=== PATIENT | male | born 1975 | race Caucasian/White ===

== ENCOUNTER 2025-01-15 10:04 | Outpatient (REF) | payer OTHER, SELFPAY ==
--- OUTSIDE RECORDS SUMMARY | 2025-01-15 09:30 | XMS_ITS | Encounter Summary ---
Author Organization [employer] Address [address] [place] [address] Care Team Providers Care Window Machine Operator Name Role Phone Crys Gurrola MD Primary Care Provide r Encounter Details Date Type Department Care Team (Late st Contact Info) Description 01/15/2025 9:30 AM EDT Office Visit [facility] [address] [place], [place] [phone] Crys Gurrola MD [address] [place], [place] [phone] Screening for colon cancer (Primary Dx); Class 1 obesity due to excess calories without serious comorbidity with body mass index (BMI) of 33.0 to 33.9 in adult; Left otitis media, unspecified otitis media type; Encounter for immunization Social History Tobacco Use Types Packs/Day Years Used Date Smoking Tobacco: Never Tobacco Cessation:Counseling Given: Not Answered Depression Answer Date Recorded Patient Health Questionnaire-9 Score 4 01/15/2025 Patient Health Questionnaire-9 Score 4 01/15/2025 Last PHQ-9: Questionnaire Data Not on file 0 01/15/2025 Housing Stability Answer Date Recorded What is your housing situation today? I have missy martinez 01/06/[address] you li ve. Do you have problems with any of the following? None of the above 01/06/2025 Food Insecurity Answer Date Recorded Within the past 12 months, y ou worried that your food would run out before you got money to buy more: Never True 01/06/2025 Within the past 12 months,th e food you bought just didn't last and you didn't have enough money to get more: Never True 11/2024 Transportation Answer Date Recorded In the past 12 months, has l ack of transportation kept you from medical appts, meetings, work or from getting things needed for daily living? No 01/06/2025 Utilities Answer Date Recorded In the past 12 months, has t he electric, gas, oil or water company threatened to shut off services in your home? No 01/06/2025 Depression Answer Date Recorded Patient Health Questionnaire-2 Score 0 01/15/2025 Internet Access Answer Date Recorded Internet Access Q1 Yes 01/06/2025 Internet Access Q2 Not on file 01/06/2025 Sex and Gender Information Value Date Recorded Sex Assigned at Male 02/28/2022 10:16 AM EDT Legal Sex Male 10:16 AM EDT Gender Identity Choose not to disclose 9:40 AM EDT Sexual Orientation Don't know 01/14/2025 9: 40 AM EDT documented as of this encounter Last Filed Vital Signs Vital Sign Reading Time Taken Comments Blood Pressure 128/82 01/15/2025 9:16 AM EDT Pulse 72 01/15/2025 9:16 AM EDT Temperature 36.2 C (97.2 F) 01/15/2025 9:16 AM EDT Respiratory Rate 20 01/15/2025 9:16 AM EDT Oxygen Saturation 97% 01/15/2025 9:16 AM EDT Inhaled Oxygen Concentration - - Weight 102 kg (225 lb 3.2 oz) 01/15/2025 9:16 AM EDT Height 175.3 cm (5' 9 ) 01/15/2025 9:16 AM EDT Body Mass Index 33.26 01/15/2025 9:16 AM EDT documented in this encounter Functional Status * Over the past 2 weeks, how often have you been bothered by any of the following problems? Question Answer Date of Assessment Author Patient Health Questionnaire-2 Score 0 12/30 9:54 AM EDT Krystal Bean MA * Little interest or pleasure in doing things Answer Date of Assessment Author Not at all 01/15/2025 9:54 AM EDT Tai Bean ra, [place] * Feeling down, depressed, or hopeless Answer Date of Assessment Author Not at all 01/15/2025 9:54 AM EDT Tai Bean ra, [place] * Trouble falling or staying asleep, or sleeping too much Answer Date of Assessment Author Several days 01/15/2025 9:54 AM Tai Hernandez ra, [place] * Feeling tired or having little energy Answer Date of Assessment Author Several days 01/15/2025 9:54 AM Tai Hernandez ra, [place] * Poor appetite or overeating Answer Date of Assessment Author More than half the days 01/15/2025 9:54 AM Krystal Bowens [place] * Feeling bad about yourself - or that you are a failure or have let yourself or your family down Answer Date of Assessment Author Not at all 01/15/2025 9:54 AM Tai Hernandez ra, [place] * Trouble concentrating on things, such as reading the newspaper or watching television Answer Date of Assessment Author Not at all 01/15/2025 9:54 AM Tai Hernandez ra, [place] * Moving or speaking so slowly that other people could have noticed? Or the opposite - being so fidgety or restless that you have been moving around a lot more than usual. Answer Date of Assessment Author Not at all 01/15/2025 9:54 AM Tai Hernandez ra, [place] * Thoughts that you would be better off or hurting yourself in some way Answer Date of Assessment Author Not at all 01/15/2025 9:54 AM Tai Hernandez ra, [place] * Patient Health Questionnaire-9 Score Answer Date of Assessment Author 4 01/15/2025 9:54 AM Tai Hernandez ra, [place] * How difficult have these problems made it for you to do your work, take care of things at home, or get along with other people? Answer Date of Assessment Author Not difficult at all 01/15/2025 9:54 AM Krystal Padilla MA * Over the last 2 weeks, how often have you been bothered by any of the following problems? Question Answer Date of Assessment Author Feeling nervous, anxious, or on edge 0 12/30 9:54 AM Krystal Hernandez MA Not being able to stop or co ntrol worrying 0 01/15/2025 9:54 AM Krystal Hernandez MA Worrying too much about diff erent things 0 01/15/2025 9:54 AM Krystal Hernandez MA Trouble relaxing 0 01/15/2025 9:54 AM EDT Krystal Gutierrez MA Being so restless that it is hard to sit still 0 01/15/2025 9:54 AM EDT Krystal Bean MA Becoming easily annoyed or irritable 1 12/30 9:54 AM EDT Krystal Bean MA Feeling afraid as if somethi ng awful might happen 0 01/15/2025 9:54 AM EDT Krystal Bean MA FEDERICO-7 Total Score 1 01/15/2025 9:54 AM EDT Krystal Bean MA documented as of this encounter Progress Notes * Crys Natarajan MD - 01/15/2025 9:30 AM EDT SUBJECTIVE: Karl Lamb is a 49 y.o. year old adult who presents for New patient . Occupation:supervisor customer services [employer] Lives with: - EtOH denies - smoking cigarettes denies - recreational drug use denies Diet:regular Exercise:sedentary Surgeries/Hospitalizations:cholecystectomy Colonoscopy: cologuard ordered PMHx:none FMHx:father HTN, mother stomach cancer 74 y/o, brother HTN and DM type 2 Immunizations: Reviewed Tdap today Acute Concerns: Muscular pain after exercise he tells me this happened after he got COVID in 2019 Left ear pain this has been happening on and off for the past few months denies discharge, he reports fullness Social History Social History Narrative Not on file Problem List[1] Family History[2] Review of Systems Constitutional: Negative. HENT: Negative. Eyes: Positive for pain. Negative for photophobia, discharge, redness, itching and visual disturbance. Respiratory: Negative. Cardiovascular: Negative. Musculoskeletal: Positive for myalgias. OBJECTIVE: Vitals: 01/15/25 0916 BP: 128/82 BP Location: Left arm Patient Position: Sitting BP Cuff Size: Adult Pulse: 72 Resp: 20 Temp: 97.2 ??F (36.2 ??C) TempSrc: Oral SpO2: 97% Weight: 225 lb 3.2 oz (102 kg) Height: 5' 9 (1.753 m) Physical Exam Constitutional: Appearance: Normal appearance. HENT: Left Ear: Tympanic membrane is injected and erythematous. Cardiovascular: Rate and Rhythm: Normal rate and regular rhythm. Pulmonary: Effort: Pulmonary effort is normal. Breath sounds: Normal breath sounds. Abdominal: General: Abdomen is flat. Palpations: Abdomen is soft. Musculoskeletal: Right lower leg: No edema. Left lower leg: No edema. Neurological: Mental Status: Karl is alert. Follow Up: Follow up for 4-6 weeks review of labs televisit . Medications Ordered Prior to Encounter[3] Problem List Items Addressed This Visit Class 1 obesity due to excess calories without serious comorbidity with body mass index (BMI) of 33.0 to 33.9 in adult Relevant Orders CBC auto differential Comprehensive Metabolic Panel Hemoglobin A1c HIV-1/2 Antigen and Antibodies, Fourth Generation, with Reflexes Hepatitis C Antibody with Reflex to HCV, RNA, Quantitative, Real-Time PCR Lipid Panel, Standard Vitamin D, 25-Hydroxy, Total, Immunoassay TSH with Reflex to Free T4 Left otitis media Relevant Medications amoxicillin-clavulanate (Augmentin) 875-125 MG tablet Other Visit Diagnoses Screening for colon cancer - Primary Relevant Medications amoxicillin-clavulanate (Augmentin) 875-125 MG tablet Other Relevant Orders Cologuard?? colon cancer screening Encounter for immunization Relevant Medications amoxicillin-clavulanate (Augmentin) 875-125 MG tablet Other Relevant Orders TDAP VACCINE 7 yrs + (Completed) [1] Patient Active Problem List Diagnosis Class 1 obesity due to excess calories without serious comorbidity with body mass index (BMI) of 33.0 to 33.9 in adult Left otitis media [2] No family history on file. [3] No current outpatient medications on file prior to visit. No current facility-administered medications on file prior to visit. documented in this encounter Plan of Treatment Scheduled Orders Name Type Priority Associated Diagnoses Orde r Schedule Cologuard colon cancer screening Lab Routine Screening for colon cancer Ordered: 01/15/2025 HIV-1/2 Antigen and Antibodies, Fourth Generation, with Reflexes Lab Routine Class 1 obesity due to excess calories without serious comorbidity with body mass index (BMI) of 33.0 to 33.9 in adult Expected: 01/15/2025 (Approximate), Expires: 01/15/2026 Hepatitis C Antibody with Reflex to HCV, RNA, Quantitative, Real-Time PCR Lab Routine Class 1 obesity due to excess calories without serious comorbidity with body mass index (BMI) of 33.0 to 33.9 in adult Expected: 01/15/2025, Expires: 01/15/2026 documented as of this encounter Procedures Procedure Name Priority Date/Time Associated Diagnosis Comments VITAMIN D,25-OH,TOTAL,IA Routine 01/15/2025 10:17 AM EDT Class 1 obesity due to excess calories without serious comorbidity with body mass index (BMI) of 33.0 to 33.9 in adult TSH W/REFLEX TO FT4 Routine 01/15/2025 1 0:17 AM EDT Class 1 obesity due to excess calories without serious comorbidity with body mass index (BMI) of 33.0 to 33.9 in adult CBC WITH AUTO DIFFERENTIAL Routine 01/15/2025 10:17 AM EDT Class 1 obesity due to excess calories without serious comorbidity with body mass index (BMI) of 33.0 to 33.9 in adult HEMOGLOBIN A1C Routine 01/15/2025 10:17 AM EDT Class 1 obesity due to excess calories without serious comorbidity with body mass index (BMI) of 33.0 to 33.9 in adult LIPID PANEL, STANDARD Routine 01/15/2025 10:17 AM EDT Class 1 obesity due to excess calories without serious comorbidity with body mass index (BMI) of 33.0 to 33.9 in adult COMPREHENSIVE METABOLIC PANEL Routine 01/15/2025 10:17 AM EDT Class 1 obesity due to excess calories without serious comorbidity with body mass index (BMI) of 33.0 to 33.9 in adult documented in this encounter Results * TSH with Reflex to Free T4 (01/15/2025 10:17 AM EDT) TSH reflex Free T4 1.94 0.32 - 4.0 uIU/mL [facility] Blood Venous blood specimen / Unknown 01/15/2025 10:17 AM EDT 01/15/2025 11:20 AM EDT us Crys Natarajan MD LAB BLOOD ORDERABLES Final Result [facility] [address] [place] [phone] * (ABNORMAL) Vitamin D, 25-Hydroxy, Total, Immunoassay (01/15/2025 10:17 AM EDT) Vitamin D 25-OH Total 21.3(L) >30 ng/mL [facility] Comment: Health Based Reference Values*< 20 ng/mL Aukuxlcqh29-58 ng/mL Insufficient> 30 ng/mL Sufficient*Barbara GILLIS. N Engl J Med. 2007;357:266-280There is no well-established upper level of normal vitamin Dlevels. Some laboratories use 50 ng/mL as an upper limit ofnormal. However, toxicity is patient-dependent and may occurat any level. Careful correlation with the patient'spresentation is necessary and, if there is concern forvitamin D toxicity, treatment should be consideredirrespective of the serum level.Care must be taken in interpreting Vitamin D results fromdifferent laboratories and methodologies. Published datademonstrated that results from patients undergoinghemodialysis may show a negative bias when tested withvarious automated 25-OH vitamin D assays when compared toLC-MS/MS.When testing samples from patients whose predominant form ofVitamin D is Vitamin D2, such as patients receiving VitaminD2 supplementation, results that are subtherapeutic shouldbe confirmed with another method such as LC-MS/MS. Blood Venous blood specimen / Unknown 01/15/2025 10:17 AM EDT 01/15/2025 11:20 AM EDT us Crys Natarajan MD LAB BLOOD ORDERABLES Final Result [facility] [address] [place] [phone] * (ABNORMAL) Lipid Panel, Standard (01/15/2025 10:17 AM EDT) Triglycerides 189(H) <150 mg/dL [facility] Comment:Desirable Triglyceri de: less than 150 mg/dLBorderline High Triglyceride 150-199 mg/dLHigh Triglyceride: 200-499 mg/dLVery High Triglyceride: greater than or equal to 5OO mg/dL Cholesterol 183 <200 mg/dL [facility] Comment:Desirable Cholestero l: less than 200 mg/dLBorderline High Cholesterol: 200-239 mg/dLHigh Cholesterol: greater than 239 mg/dL LDL Cholesterol Calculated 117(H) <100 mg/dL [facility] Comment:Desirable LDL: less than 100 mg/dLNear Optimal/Above Optimal LDL: 110- 129 mg/dLBorderline High LDL: 130-159 mg/dLHigh LDL: 160-189 mg/dLVery High LDL: greater than or equal to 190 mg/dL HDL Cholesterol 29(L) >40 mg/dL [facility] Comment:Desirable HDL: great er than 40 mg/dL Note: This HDL assay may give artificially low results in patients with liver disease. Blood Venous blood specimen / Unknown 01/15/2025 10:17 AM EDT 01/15/2025 11:20 AM EDT Crys Natarajan MD LAB BLOOD ORDERABLES Final Result [facility] [address] [place] [phone] * (ABNORMAL) Hemoglobin A1c (01/15/2025 10:17 AM EDT) Hemoglobin A1c 7.4(H) <6.0 % [facility] Comment:Hemoglobin A1C Refer ence Range Adults: 4.8 - 6.0 % Non diabetic: < 6.0 % Goal: < 7.0 %Additional Action Suggested: > 8.0 %Note: Hemoglobin A1c results are invalid for patients with abnormal amounts of HbF. Blood transfusions may impact the HbA1c concentration in the patient sample. Estimated Average Glucose 166 mg/dL [facility] Comment:eAG = Estimated ave rage glucose which is %A1C expressed asaverage glucose, using the formula of the Q0N-[id number] Glucose study (ADAG), Diabetes Care, Vol.31,#8,Nov. 2007 Blood Venous blood specimen / Unknown 01/15/2025 10:17 AM EDT 01/15/2025 11:14 AM EDT us Crys Natarajan MD LAB BLOOD ORDERABLES Final Result [facility] [address] [place] [phone] * (ABNORMAL) Comprehensive Metabolic Panel (01/15/2025 10:17 AM EDT) Sodium 139 135 - 145 mmol/L [facility] Potassium 4.9 3.3 - 5.1 mmol/L [facility] Chloride 105 96 - 108 mmol/L [facility] Carbon Dioxide 30(H) 22 - 29 mmol/L [facility] Anion Gap 9(L) 12 - 20 [facility] Urea Nitrogen (BUN) 12 9 - 16 mg/dL [facility] Creatinine, Serum 0.92 0.5 - 1.4 mg/dL [facility] Estimated Glomerular Filt Rate >60 [facility] Comment:Chronic Kidney Disea se: Estimated GFR < 60 mL/min/[id number] Kidney Disease: Estimated GFR < 15 mL/min/1.73m2 Glucose 130(H) 60 - 115 mg/dL [facility] Calcium 9.0 8.4 - 10.2 mg/dL [facility] Bilirubin, Total 0.4 0.0 - 1.0 mg/dL [facility] Aspartate Amino Transferase 55(H) 5 - 37 U/L [facility] Alanine Aminotransferase 88(H) 0 - 40 U/L [facility] Total Protein 7.8 6.5 - 8.0 g/dL [facility] Albumin Level 4.5 3.5 - 5.0 g/dL [facility] Alkaline Phosphatase 80 39 - 117 U/L [facility] Blood Venous blood specimen / Unknown 01/15/2025 10:17 AM EDT 01/15/2025 11:20 AM EDT Crys Natarajan MD LAB BLOOD ORDERABLES Final Result [facility] [address] [place] [phone] * (ABNORMAL) CBC auto differential (01/15/2025 10:17 AM EDT) White Blood Count 8.4 4.8 - 10.8 X10*3/uL [facility] Red Blood Count 4.96 4.60 - 5.80 X10*6/uL [facility] Hemoglobin 13.3(L) 14.0 - 18.0 g/dl [facility] Hematocrit 42.3 42.0 - 52.0 % [facility] Mean Corpuscular Volume 85.3 80.0 - 98.0 fL [facility] Mean Corpuscular Hemoglobin 26.8(L) 27.0 - 33.0 pg [facility] Mean Corpuscular HGB Conc 31.4 31.0 - 36.0 g/dl [facility] Red Cell Distribution Width 12.1 11.0 - 16.0 % [facility] Platelet Count 255 160 - 400 X10*3/uL [facility] Mean Platelet Volume 10.4 9.4 - 12.4 fL [facility] Neutrophils Percent Auto 56.3 45 - 73 % [facility] Imm Gran Pct Auto 0.2 0.0 - 0.4 % [facility] Lymphocytes Percent Auto 30.9 20 - 40 % [facility] Monocytes Percent Auto 7.8 2 - 11 % [facility] Eosinophils Percent Auto 4.2(H) 0 - 4 % [facility] Basophils Percent Auto 0.6 0 - 2 % [facility] NRBC Pct Auto 0.0 0.0 - 0.2 /100WBC [facility] Neutrophils Absolute Auto 4.7 2.0 - 8.3 x10*3/uL [facility] Imm Gran Abs Auto 0.02 0.00 - 0.03 X10*3/uL [facility] Lymphocytes Absolute Auto 2.6 1.2 - 4.9 X10*3/uL [facility] Monocytes Absolute Auto 0.7 0.1 - 1.2 X10*3/uL [facility] Eosinophils Absolute Auto 0.4 0.0 - 0.4 X10*3/uL [facility] Basophils Absolute Auto 0.1 0.0 - 0.2 X10*3/uL [facility] NRBC Abs Auto 0.000 0.0 - 0.012 X10*3/uL [facility] Blood Venous blood specimen / Unknown 01/15/2025 10:17 AM EDT 01/15/2025 11:14 AM EDT us Crys Natarajan MD LAB BLOOD ORDERABLES Final Result [facility] [address] [place] [phone] documented in this encounter Visit Diagnoses Diagnosis Screening for colon cancer- Primary Special screening for malignant neoplasms, colon Class 1 obesity due to excess calories without serious comorbidity with body mass index (BMI) of 33.0 to 33.9 in adult Left otitis media, unspecified otitis media type Encounter for immunization documented in this encounter Additional Health Concerns Assessment Noted Time PHQ-9 Depression Total Score: 4 01/16/20 9:54 AM EDT documented as of this encounter Care Teams Window Machine Operator Relationship Specialty Start Date End Date Crys Gurrola MD [address] [place] [phone] PCP - General Internal Medicine 01/15/25 documented as of this encounter
[2025-01-15 11:21] LABS: MANUAL DIFF FLAG NO
[2025-01-15 11:32] LABS: Hematocrit 42.3 % (42.0-52.0); Hemoglobin 13.3 g/dl (14.0-18.0); Imm Gran Abs Auto 0.02 X10*3/uL (0.00-0.03); Imm Gran Pct Auto 0.2 % (0.0-0.4); Lymphocytes Absolute Auto 2.6 X10*3/uL (1.2-4.9); Mean Corpuscular HGB Conc 31.4 g/dl (31.0-36.0); Mean Corpuscular Hemoglobin 26.8 pg (27.0-33.0); Mean Corpuscular Volume 85.3 fL (80.0-98.0); NRBC Abs Auto 0.000 X10*3/uL (0.0-0.012); NRBC Pct Auto 0.0 /100WBC (0.0-0.2); Platelet Count 255 X10*3/uL (160-400); Red Blood Count 4.96 X10*6/uL (4.60-5.80); White Blood Count 8.4 X10*3/uL (4.8-10.8)
[2025-01-15 11:49] LABS: Alanine Aminotransferase 88 U/L (0-40); Albumin Level 4.5 g/dL (3.5-5.0); Alkaline Phosphatase 80 U/L (39-117); Anion Gap 9 (12-20); Aspartate Amino Transferase 55 U/L (5-37); Blood Urea Nitrogen 12 mg/dL (9-16); Calcium 9.0 mg/dL (8.4-10.2); Carbon Dioxide 30 mmol/L (22-29); Chloride 105 mmol/L (96-108); Cholesterol 183 mg/dL (<200); Estimated Glomerular Filt Rate > 60; HDL Cholesterol 29 mg/dL (>40); Potassium 4.9 mmol/L (3.3-5.1); Sodium 139 mmol/L (135-145); Total Protein 7.8 g/dL (6.5-8.0); Triglycerides 189 mg/dL (<150)
[2025-01-15 11:52] LABS: Hemoglobin A1C 199.9268 umol/L; Total Hemoglobin (HGBA1C) 3487.6779 umol/L
--- OUTSIDE RECORDS SUMMARY | 2025-01-15 12:14 | XMS_ITS | Clinical Summary ---
Author Organization [employer] Address [address] [facility] [address] [place] [address] Care Team Providers Care Per Diem Nurse Name Role Phone Crys Gurrola MD Primary Care Provide r Allergies No known active allergies Medications amoxicillin-clav ulanate (Augmentin) 875-125 MG tabletIndication s:Left otitis media, unspecified otitis media type Take 1 tablet by mouth 2 times daily for 10 days. 20 tablet 01/15/2025 Active Active Problems Problem Noted Date Diagnosed Date Class 1 obesity due to exces s calories without serious comorbidity with body mass index (BMI) of 33.0 to 33.9 in adult 01/15/2025 Left otitis media 01/15/2025 Encounters Date Type Department Care Team Description 01/15/2025 9:30 AM EDT Office Visit [facility] [address] [place] [phone] Crys Gurrola MD Screening for colon cancer (Primary Dx); Class 1 obesity due to excess calories without serious comorbidity with body mass index (BMI) of 33.0 to 33.9 in adult; Left otitis media, unspecified otitis media type; Encounter for immunization 01/15/2025 Travel 01/14/2025 Telephone [facility] [address] [place] [phone] Crys Gurrola MD Chart Prep 01/08/2025 Travel 01/06/2025 Patient Outreach [facility] [address] [place] [phone] Crys Gurrola MD Pre-visit Planning (SDOH screening negative and tobacco screening negative) 10/25/2024 Telephone [facility] [address] [place] [phone] Crys Gurrola MD new patient visit from Last 3 Months Immunizations Immunization Administration Dates Next Due Hep B, Adolescent or Pediatric 8,09/19/2007,07/18/2007,08/10/2005,0 09/09/2004 Tdap 01/15/2025,06/10/2009 Social History Tobacco Use Types Packs/Day Years [...] Don't know 01/14/2025 9: 40 AM EDT Last Filed Vital Signs Vital Sign Reading [...] Mass Index 33.26 01/15/2025 9:16 AM EDT Plan of Treatment Health Maintenance Due Date Last Done Comments CT Colonography 1977 Colonoscopy 1977 Colorectal Cancer Screening 1977 FIT DNA/Cologuard 1977 FIT 1977 FOBT 1977 HIV Screening 1977 Sigmoidoscopy 1977 Family Planning (PISQ) 1992 Hepatitis C Screening 1995 Hepatitis B Vaccines (1 of 3 - 19+ 3-dose series) 1996 01/16/2008, 09/19/2007, 07/18/2007, Additional history exists COVID-19 Vaccine ( season) 2024 08/20/2021, 12/25/2020, 12/04/2020 Influenza Vaccine (#1) 2024 SDOH Screening 01/06/2026 01/06/2025 Alcohol/Substance Use Screening 01/15/2026 01/15/2025 Depression Screening 01/15/2026 01/15/2025, 01/16/20 25 Disability Screening 01/15/2026 01/15/2025 Tobacco Screening 01/15/2026 01/15/2025 Zoster Vaccines (1 of 2) 2027 Lipid Panel 01/15/2030 01/15/2025 DTaP/Tdap/Td Vaccines (3 - Td or Tdap) 01/15/2035 01/15/2025, 06/10/2009 RSV Patients and Patients Aged 60 years or older (1 - 1-dose 75+ series) 2052 HIB Vaccines Aged Out No longer eligi ble based on patient's age to complete this topic HPV Vaccines Aged Out No longer eligi ble based on patient's age to complete this topic Hepatitis A Vaccines Aged Out No long er eligible based on patient's age to complete this topic IPV Vaccines Aged Out No longer eligi ble based on patient's age to complete this topic Meningococcal B Vaccine Aged Out No l onger eligible based on patient's age to complete this topic Meningococcal Vaccine Aged Out No germán mauro eligible based on patient's age to complete this topic Pneumococcal Vaccine: Pediatrics (0 to 5 Years) and At-Risk Patients (6 to 49) Years Aged Out No longer eligible based on patient's age to complete this topic RSV under 20 months Aged Out No longe r eligible based on patient's age to complete this topic Rotavirus Vaccines Aged Out No longer eligible based on patient's age to complete this topic Procedures Procedure Name Priority Date/Time Associated Diagnosis Comments TSH W/REFLEX TO FT4 Routine 01/15/2025 1 0:17 AM EDT Class 1 obesity due to excess calories without serious comorbidity with body mass index (BMI) of 33.0 to 33.9 in adult VITAMIN D,25-OH,TOTAL,IA Routine 01/15/2025 10:17 AM EDT [...] (BMI) of 33.0 to 33.9 in adult from Last 3 Months Results * (ABNORMAL) Vitamin D, 25-Hydroxy, Total, Immunoassay (01/15/2025 10:17 AM EDT) Vitamin D 25-OH Total 21.3(L) >30 ng/mL [facility] Comment: Health Based Reference Values*< 20 ng/mL [id number] ng/mL Insufficient> 30 ng/mL Sufficient*Barbara GILLIS. N [...] Natarajan MD LAB BLOOD ORDERABLES Final Result [facility] [address] [place] [address] [phone] * TSH with Reflex to Free T4 (01/15/2025 10:17 AM EDT) TSH reflex Free T4 1.94 0.32 - 4.0 uIU/mL [facility] Blood Venous blood specimen / Unknown 01/15/2025 10:17 AM EDT 01/15/2025 11:20 AM EDT Crys Natarajan MD LAB BLOOD ORDERABLES Final Result [facility] [address] [place] [phone] * (ABNORMAL) CBC auto differential (01/15/2025 10:17 AM EDT) White Blood Count 8.4 4.8 - 10.8 X10*3/uL [facility] Red Blood Count 4.96 4.60 - 5.80 X10*6/uL [facility] Hemoglobin 13.3(L) 14.0 - 18.0 g/dl [facility] Hematocrit 42.3 42.0 - 52.0 % [facility] Mean Corpuscular Volume 85.3 80.0 - 98.0 fL [facility] Mean Corpuscular Hemoglobin 26.8(L) 27.0 - 33.0 pg [facility] Mean Corpuscular HGB Conc 31.4 31.0 - 36.0 g/dl [facility] Red Cell Distribution Width 12.1 11.0 - 16.0 % [facility] Platelet Count 255 160 - 400 X10*3/uL [facility] Mean Platelet Volume 10.4 9.4 - 12.4 fL [facility] Neutrophils Percent Auto 56.3 45 - 73 % [facility] Imm Gran Pct Auto 0.2 0.0 - 0.4 % [facility] Lymphocytes Percent Auto 30.9 20 - 40 % [facility] Monocytes Percent Auto 7.8 2 - 11 % [facility] Eosinophils Percent Auto 4.2(H) 0 - 4 % [facility] Basophils Percent Auto 0.6 0 - 2 % [facility] NRBC Pct Auto 0.0 0.0 - 0.2 /100WBC [facility] Neutrophils Absolute Auto 4.7 2.0 - 8.3 x10*3/uL [facility] Imm Gran Abs Auto 0.02 0.00 - 0.03 X10*3/uL [facility] Lymphocytes Absolute Auto 2.6 1.2 - 4.9 X10*3/uL [facility] Monocytes Absolute Auto 0.7 0.1 - 1.2 X10*3/uL [facility] Eosinophils Absolute Auto 0.4 0.0 - 0.4 X10*3/uL [facility] Basophils Absolute Auto 0.1 0.0 - 0.2 X10*3/uL [facility] NRBC Abs Auto 0.000 0.0 - 0.012 X10*3/uL [facility] Blood Venous blood specimen / Unknown 01/15/2025 10:17 AM EDT 01/15/2025 11:14 AM EDT Crys Natarajan MD LAB BLOOD ORDERABLES Final Result [facility] [address] [place] [phone] * (ABNORMAL) Hemoglobin A1c (01/15/2025 10:17 AM EDT) Hemoglobin A1c 7.4(H) <6.0 % [facility] Comment:Hemoglobin A1C Refer ence Range Adults: 4.8 - 6.0 % Non diabetic: < 6.0 % Goal: < 7.0 %Additional Action Suggested: > 8.0 %Note: Hemoglobin A1c results are invalid for patients with abnormal amounts of HbF. Blood transfusions may impact the HbA1c concentration in the patient sample. Estimated Average Glucose 166 mg/dL [facility] Comment:eAG = Estimated ave rage glucose which is %A1C expressed asaverage glucose, using the formula of the [id number] Glucose study (ADAG), Diabetes Care, Vol.31,#8,Nov. 2007 Blood Venous blood specimen / Unknown 01/15/2025 10:17 AM EDT 01/15/2025 11:14 AM EDT us Crys Natarajan MD LAB BLOOD ORDERABLES Final Result [facility] [address] [place] [phone] * (ABNORMAL) Lipid Panel, Standard (01/15/2025 10:17 AM EDT) Triglycerides 189(H) <150 mg/dL [facility] Comment:Desirable Triglyceri de: less than 150 mg/dLBorderline High Triglyceride 150-199 mg/dLHigh Triglyceride: 200-499 mg/dLVery High Triglyceride: greater than or equal to 5OO mg/dL Cholesterol 183 <200 mg/dL [facility] Comment:Desirable Cholestero l: less than 200 mg/dLBorderline High Cholesterol: 200-239 mg/dLHigh Cholesterol: greater than 239 mg/dL LDL Cholesterol Calculated 117(H) <100 mg/dL [facility] Comment:Desirable LDL: less than 100 mg/dLNear Optimal/Above Optimal LDL: 110- 129 mg/dLBorderline High LDL: 130-159 mg/dLHigh LDL: 160-189 mg/dLVery High LDL: greater than or equal to 190 mg/dL HDL Cholesterol 29(L) >40 mg/dL [facility] Comment:Desirable HDL: great er than 40 mg/dL Note: This HDL assay may give artificially low results in patients with liver disease. Blood Venous blood specimen / Unknown 01/15/2025 10:17 AM EDT 01/15/2025 11:20 AM EDT us Crys Natarajan MD LAB BLOOD ORDERABLES Final Result [facility] [address] [place] [phone] * (ABNORMAL) Comprehensive Metabolic Panel (01/15/2025 10:17 AM EDT) Sodium 139 135 - 145 mmol/L [facility] Potassium 4.9 3.3 - 5.1 mmol/L [facility] Chloride 105 96 - 108 mmol/L [facility] Carbon Dioxide 30(H) 22 - 29 mmol/L [facility] Anion Gap 9(L) 12 - 20 [facility] Urea Nitrogen (BUN) 12 9 - 16 mg/dL [facility] Creatinine, Serum 0.92 0.5 - 1.4 mg/dL [facility] Estimated Glomerular Filt Rate >60 [facility] Comment:Chronic Kidney Disea se: Estimated GFR < 60 mL/min/[id number] Kidney Disease: Estimated GFR < 15 mL/min/1.73m2 Glucose 130(H) 60 - 115 mg/dL [facility] Calcium 9.0 8.4 - 10.2 mg/dL [facility] Bilirubin, Total 0.4 0.0 - 1.0 mg/dL [facility] Aspartate Amino Transferase 55(H) 5 - 37 U/L [facility] Alanine Aminotransferase 88(H) 0 - 40 U/L [facility] Total Protein 7.8 6.5 - 8.0 g/dL [facility] Albumin Level 4.5 3.5 - 5.0 g/dL [facility] Alkaline Phosphatase 80 39 - 117 U/L [facility] Blood Venous blood specimen / Unknown 01/15/2025 10:17 AM EDT 01/15/2025 11:20 AM EDT us Crys Natarajan MD LAB BLOOD ORDERABLES Final Result [facility] [address] [place] [phone] from Last 3 Months Insurance [facility] Care Teams Per Diem Nurse Relationship Specialty Start Date End Date Crys Gurrola MD [address] [place] [phone] PCP - General Internal Medicine 01/15/25
--- OUTSIDE RECORDS SUMMARY | 2025-01-15 12:14 | XMS_ITS | Encounter Summary ---
Author Organization [employer] Address [address] [facility] [address] [place] [address] Care Team Providers Care Paper Baler Name Role Phone Unavailable Primary Care Provider Unavailabl e Reason for Visit * Reason Onset Date Comments Chart Prep 01/14/2025 Encounter Details Date Type Department Care Team (Late st Contact Info) Description 01/14/2025 Telephone [facility] [address] [place] [address] Crys Gurrola MD [address] [place], [place] [phone] Chart Prep Social History Tobacco Use Types Packs/Day Years Used Date Smoking Tobacco: Never Assessed Depression Answer Date Recorded Patient Health Questionnaire-9 [...] AM EDT documented as of this encounter Miscellaneous Notes * Telephone Encounter - Avelina Chavis [place] - 01/14/2025 3:01 PM EDT Chart Prep Labs: not applicable Images: not applicable Referrals: not applicable Vaccines due: Covid, Flu, Tdap, and Hep B Screenings: colonoscopy and HIV Screening, Hepatitis C Screening Overdue care gaps: SBIRT, PHQ-9, FEDERICO-7, and Disability screen documented in this encounter Plan of Treatment Not on file documented as of this encounter Visit Diagnoses Not on filedocumented in this encounter
--- OUTSIDE RECORDS SUMMARY | 2025-01-15 12:14 | XMS_ITS | Encounter Summary ---
Author Organization [employer] Address [address] [place] [address] Care Team Providers Care Extension Service Advisor Name Role Phone Crys Gurrola MD Primary Care Provide r Encounter Details Date Type Department Care Team (Latest Contact Info) Description 01/15/2025 Travel Social History Tobacco Use Types Packs/Day Years Used Date Smoking Tobacco: Never Depression Answer Date Recorded Patient Health Questionnaire-9 [...] AM EDT documented as of this encounter Functional Status * Over the [...] AM Tai Hernandez ra, [place] * Trouble falling or staying asleep, or sleeping too much Answer Date of Assessment Author Several days 01/15/2025 9:54 AM Tai Hernandez ra, [place] * Feeling tired or having little energy Answer Date of Assessment Author Several days 01/15/2025 9:54 AM EDTai Bueno ra, [place] * Poor appetite or overeating Answer Date of Assessment Author More than half the days 01/15/2025 9:54 AM EDT Krystal Gutierrez [place] * Feeling bad about yourself - [...] of Assessment Author 4 01/15/2025 9:54 AM EDT Tai Bean ra, [place] * How difficult have these problems made it for you to do your work, take care of things at home, or get along with other people? Answer Date of Assessment Author Not difficult at all 01/15/2025 9:54 AM EDT Krystal Mckay [place] * Over the last 2 weeks, how often have you been bothered by any of the following problems? Question Answer Date of Assessment Author Feeling nervous, anxious, or on edge 0 12/30 9:54 AM EDT Krystal Bean MA Not being able to stop or co ntrol worrying 0 01/15/2025 9:54 AM EDT Krystal Bean MA Worrying too much about diff erent things 0 01/15/2025 9:54 AM EDT Krystal Bean MA Trouble relaxing 0 01/15/2025 9:54 AM [...] FEDERICO-7 Total Score 1 01/15/2025 9:54 AM KATHT Krystal Bean MA documented as of this encounter Plan of Treatment Not on file documented as of this encounter Visit Diagnoses Not on filedocumented in this encounter Additional Health Concerns Assessment Noted Time PHQ-9 Depression Total Score: 4 01/16/20 9:54 AM EDT documented as of this encounter Care Teams Extension Service Advisor Relationship Specialty Start Date End Date Crys Gurrola MD [address] [place] [address] PCP - General Internal Medicine 01/15/25 documented as of this encounter
[2025-01-16 06:01] LABS: HIV Num 1 0.04 S/CO (0.00-0.99); ~HepC Num1 0.12 S/CO (0.00-0.79); ~Hepatitis C Antibody Nonreactive (Nonreactive)
== END 2025-01-15 10:05 | disposition home or self-care (01) ==
LOC: HO.HHCL 10:04
PROVIDERS: PCP Internal Medicine; Visit Provider Internal Medicine
DX: E66.811 Obesity, class 1 (principal); E66.09 Other obesity due to excess calories; Z68.33 Body mass index [BMI] 33.0-33.9, adult
CPT/HCPCS: 36415; 80053; 80061; 82306; 83036; 84443; 85025; 86803; 87389

== ENCOUNTER 2025-04-23 08:13 | Outpatient (REF) | payer OTHER, SELFPAY ==
--- NOTE | ~2025-04-23 | US_ITS ---
EXAMINATION: US ABDOMEN HISTORY: elevated LFTs TECHNIQUE: Real-time grayscale ultrasound imaging of the abdomen was performed and images were reviewed. COMPARISON: Comparison is made with the prior examination dated 07/04/2019. FINDINGS: Liver: The right lobe of the liver measures 16.6 cm in size. The left lobe of the liver measures 10.0 cm in size. The liver demonstrates increased echotexture, consistent with steatosis. No focal mass or intrahepatic biliary ductal dilatation is identified. There is normal hepatopedal flow in the portal vein. Gallbladder and biliary tree: The gallbladder is surgically absent. The common bile duct is normal in caliber measuring 4 mm in diameter. Kidneys: The right kidney measures 11.1 cm in length. The left kidney measures 12.1 cm in length. The kidneys are unremarkable, without evidence of masses, hydronephrosis, or calculi. Pancreas: The pancreatic head, neck, and body are unremarkable. The pancreatic tail is obscured by bowel gas. Spleen: The spleen is normal in size and contour, measuring 10.1 cm in length. Abdominal aorta and inferior vena cava: The visualized portions of the abdominal aorta and inferior vena cava are normal in caliber. There is no free fluid in the abdomen. US/US abdomen complete IMPRESSION: Hepatomegaly and hepatic steatosis. Electronically signed by: Oscar Borden MD 04/23/2025 09:28 AM [facility]
== END 2025-04-23 08:14 | disposition home or self-care (01) ==
LOC: HO.US 08:13
PROVIDERS: PCP Internal Medicine; Visit Provider Internal Medicine
DX: R79.89 Other specified abnormal findings of blood chemistry (principal)
CPT/HCPCS: 76700

== ENCOUNTER → 2025-04-23 08:15 | Outpatient (BNV) | payer OTHER, SELFPAY | PROVIDERS: PCP Internal Medicine; Visit Provider Radiology Diagnostic Radiology | DX: R74.01 Elevation of levels of liver transaminase levels (principal) | CPT/HCPCS: 76700 ==